=== PATIENT | male | born 1985 | race Caucasian/White ===

== ENCOUNTER 2016-12-10 03:40 | Emergency (ER) | payer OTHER ==
--- NOTE | 2016-12-10 04:00 | ER Document Report ---
ED Psych Disorder / Suicide - General Mode of Arrival: Ambulatory Information source: Patient TRAVEL OUTSIDE OF THE [place] IN LAST 30 DAYS: No - HPI Patient complains to provider of: Suicidal attempt Onset: This evening Similar symptoms previously: No Recently seen / treated by doctor: No <LACI GLEZ - Last Filed: 12/10/16 05:20> <CHRISTALFLORIAN ANN - Last Filed: 12/10/16 06:37> - General Chief Complaint: Suicidal Ideation Stated Complaint: SUICIDAL IDEATION Time Seen by Provider: 12/10/16 03:59 Notes: Patient is a 31-year-old male presented emergency department after suicidal attempt. Patient states that he threw a knife to his throat this evening. Patient states the first time and has never had before. Patient denies being upset by anything recently and does not know how it happened. Patient states it was "spur of the moment." Patient states that he did this after he called to check in with his family and stepdad. Patient states that his doctor was telling him that a "college degree is not enough." Patient lives alone and denies have any guns in his house. 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 Patient does not take any medications. Patient is never seen a counselor. Patient smokes cigarettes and drinks alcohol. (LACI GLEZ) - Related Data Allergies/Adverse Reactions: sulfamethoxazole [From Septra] Allergy (Verified 12/10/16 03:51) trimethoprim [From Septra] Allergy (Verified 12/10/16 03:51) Past Medical History - General Information source: Patient - Social History Smoking Status: Current Every Day Smoker Frequency of alcohol use: Social Occupation: [employer] Lives with: Alone Family History: None Patient has suicidal ideation: No Patient has homicidal ideation: No Surgical Hx: Negative <LACI GLEZ - Last Filed: 12/10/16 05:20> Review of Systems - Review of Systems Constitutional: No symptoms reported EENT: No symptoms reported Cardiovascular: No symptoms reported Respiratory: No symptoms reported Gastrointestinal: No symptoms reported Genitourinary: No symptoms reported Male Genitourinary: No symptoms reported Musculoskeletal: No symptoms reported Skin: No symptoms reported Hematologic/Lymphatic: No symptoms reported Neurological/Psychological: See HPI, Suicidal ideation -: Yes All other systems reviewed and negative <LACI GLEZ - Last Filed: 12/10/16 05:20> Physical Exam - Vital signs Interpretation: Hypertensive <LACI GLEZ - Last Filed: 12/10/16 05:20> <FLORIAN SIEGEL - Last Filed: 12/10/16 06:37> - Vital signs Vitals: Temp Pulse Resp BP Pulse Ox 98.2 F 85 16 146/78 H 96 12/10/16 03:43 12/10/16 03:43 12/10/16 03:43 12/10/16 03:43 12/10/16 03:43 - Notes Notes: GENERAL: Alert, interacts well, suicidal. Mild distress. HEAD: Normocephalic, atraumatic. EYES: Appear normal. Pupils equal, round, and reactive to light. ENT: Moist mucus membranes, tongue midline. NECK: Full range of motion. Supple. Trachea midline. LUNGS: Clear to auscultation bilaterally, no wheezes, rales, or rhonchi. No respiratory distress. HEART: Regular rate and rhythm. No murmurs, gallops, or rubs. ABDOMEN: Soft, non-tender. Non-distended. Normal bowel sounds. EXTREMITIES: Moves all 4 extremities spontaneously. Normal strength. No edema. NEUROLOGICAL: Alert and oriented x3. Normal speech. No focal neurological deficits. GSC 15. PSYCH: Labile. SKIN: Warm, dry, normal turgor. No rashes or lesions noted. (NEWTONLACI) Course - Laboratory Result Diagrams: 12/10/16 04:15 12/10/16 04:15 <LACI GLEZ - Last Filed: 12/10/16 05:20> - Laboratory Result Diagrams: 12/10/16 04:15 12/10/16 04:15 <FLORIAN SIEGEL - Last Filed: 12/10/16 06:37> - Re-evaluation Re-evalutation: 12/10/16 06:36 Patient is a 31-year-old male who presents after feeling like killing himself and impulsively pulling a knife to his throat. Patient denies any history of this. Patient denies any previous suicide attempts or mental health disorder. Patient is labile in room. Due to this, presenting complaint, and impulsivity, recommended the patient stay on involuntary commitment paperwork. He is otherwise medically stable. (FLORIAN SIEGEL) - Vital Signs Vital signs: Temp Pulse Resp BP Pulse Ox 98.2 F 85 16 146/78 H 96 12/10/16 03:43 12/10/16 03:43 12/10/16 03:43 12/10/16 03:43 12/10/16 03:43 - Laboratory Laboratory results interpreted by me: 12/10/16 12/10/16 04:15 05:37 Sodium 146.5 H Chloride 112 H Carbon Dioxide 18 L Urine Ketones TRACE H Urine Urobilinogen 2.0 H Salicylates < 1.0 L Acetaminophen < 10 L Discharge <LACI GLEZ - Last Filed: 12/10/16 05:20> <FLORIAN SIEGEL - Last Filed: 12/10/16 06:37> - Discharge Clinical Impression: Suicidal ideation Condition: Stable Disposition: PSYCH HOSP/UNIT Scribe Attestation: 12/10/16 06:37 I personally performed the services described in the documentation, reviewed and edited the documentation which was dictated to the scribe in my presence, and it accurately records my words and actions. (FLORIAN SIEGEL) Scribe Documentation - Scribe Written by Robbi:: Robbi Martinez, 12/10/2016 525 acting as scribe for :: Christal <LACI GLEZ - Last Filed: 12/10/16 05:20>
[2016-12-10 04:45] LABS: ABSOLUTE BASOPHILS # (AUTO) 0.1 10^3/uL (0.0-0.2); ABSOLUTE EOSINOPHILS # (AUTO) 0.2 10^3/uL (0.0-0.6); ABSOLUTE LYMPHOCYTES (AUTO) 2.9 10^3/uL (0.5-4.7); ABSOLUTE MONOCYTES (AUTO) 0.6 10^3/uL (0.1-1.4); ABSOLUTE NEUT (AUTO) 2.9 10^3/uL (1.7-8.2); BASOPHILS % (AUTO) 1.2 % (0-2); EOSINOPHILS % (AUTO) 3.4 % (0-6); HEMATOCRIT 45.2 % (37.9-51.0); HEMOGLOBIN 15.4 g/dL (13.5-17.0); LYMPHOCYTES % (AUTO) 42.7 % (13-45); MEAN CORPUSCULAR HEMOGLOBIN 31.4 pg (27.0-33.4); MEAN CORPUSCULAR HGB CONC 34.2 g/dL (32.0-36.0); MEAN CORPUSCULAR VOLUME 92 fl (80-97); MONOCYTES % (AUTO) 9.1 % (3-13); RED BLOOD COUNT 4.91 10^6/uL (4.35-5.55); RED CELL DISTRIBUTION WIDTH 13.2 % (11.5-14.0); SEGMENTED NEUTROPHILS % (AUTO) 43.6 % (42-78); WHITE BLOOD COUNT 6.7 10^3/uL (4.0-10.5)
[2016-12-10 05:08] LABS: ALANINE AMINOTRANSFERASE 38 U/L (21-72); ALBUMIN 4.4 g/dL (3.5-5.0); ALCOHOL 131 mg/dL (NONE DETECTED); ALKALINE PHOSPHATASE 88 U/L (38-126); ANION GAP 17 (5-19); ASPARTATE AMINO TRANSFERASE 28 U/L (17-59); BILIRUBIN,DIRECT 0.4 mg/dL (0.0-0.4); BILIRUBIN,TOTAL 0.4 mg/dL (0.2-1.3); BLOOD UREA NITROGEN 16 mg/dL (7-20); CALCIUM 9.6 mg/dL (8.4-10.2); CARBON DIOXIDE 18 mmol/L (22-30); CHLORIDE 112 mmol/L (98-107); CREATININE RESULT 0.89 mg/dL (0.52-1.25); GLUCOSE 93 mg/dL (75-110); POTASSIUM 4.1 mmol/L (3.6-5.0); SODIUM 146.5 mmol/L (137-145); TOTAL PROTEIN 7.7 g/dL (6.3-8.2)
[2016-12-10 06:05] LABS: APPEARANCE,URINE CLEAR; BILIRUBIN,URINE NEGATIVE (NEGATIVE); GLUCOSE, URINE NEGATIVE (NEGATIVE); KETONES,URINE TRACE mg/dL (NEGATIVE); LEUKOCYTE ESTERASE,URINE NEGATIVE (NEGATIVE); NITRITE,URINE NEGATIVE (NEGATIVE); PROTEIN,URINE NEGATIVE (NEGATIVE); URINE SPECIFIC GRAVITY 1.018
[2016-12-10 06:19] LABS: URINE BARBITURATES SCREEN NEGATIVE; URINE METHADONE SCREEN NEGATIVE; URINE OPIATES LOW NEGATIVE; URINE PHENCYCLIDINE SCREEN NEGATIVE
--- NOTE | 2016-12-10 08:13 | EKG REPORT ---
SEVERITY:- NORMAL ECG - SINUS RHYTHM : Confirmed by: Glynn Howard MD 10-Dec-2016 08:12:34
--- NOTE | 2016-12-10 11:12 | ER Document Report ---
Doctor's Note Notes: 12/10/16 11:11 Rounds: Chart reviewed and patient interviewed. Patient being evaluated for having expressed suicidal thoughts yesterday. He had been drinking alcohol and his blood level was 131 here. All other lab studies essentially normal. Currently, vital signs are normal. Patient denies feeling suicidal at this time. Patient appears to be medically stable for transfer or discharge. Jose Grayson MD
[2016-12-10 15:32] VITALS: BP 158/93
== END 2016-12-10 16:00 | disposition home or self-care (01) ==
LOC: ER 03:40
DX: F32.9 Major depressive disorder, single episode, unspecified (principal); R45.851 Suicidal ideations; F17.210 Nicotine dependence, cigarettes, uncomplicated; Z88.1 Allergy status to other antibiotic agents
CPT/HCPCS: 36415; 80053; 80307; 81001; 85025; 93005; 93010; 99285

== ENCOUNTER 2017-01-14 00:31 | Emergency (ER) | payer OTHER ==
[2017-01-14] MEDS ORDERED: LIDOCAINE 1% INJ-PF (10 MG/ML) 30 ML SDV INJ ONE (04:29)
--- NOTE | 2017-01-14 04:35 | ER Document Report ---
ED Skin Rash/Insect Bite/Abscs - General Chief Complaint: Abscess Stated Complaint: KNOT UNDER LEFT NIPPLE Time Seen by Provider: 01/14/17 04:18 Notes: She patient is a 31-year-old male who comes emergency department for chief complaint of a painful, red, draining area under his left breast area on his chest wall. He states it started out as a "pimple" 2 days ago but has worsened and become harder. He states he has had abscesses before in the past. He denies history of diabetes. He denies fever or chills, denies any other symptoms. TRAVEL OUTSIDE OF THE [place] IN LAST 30 DAYS: No - Related Data Allergies/Adverse Reactions: sulfamethoxazole [From ] Allergy (Verified 12/10/16 03:51) trimethoprim [From ] Allergy (Verified 12/10/16 03:51) Past Medical History - General Information source: Patient - Social History Smoking Status: Never Smoker Frequency of alcohol use: None Drug Abuse: None Lives with: Family Family History: None Patient has suicidal ideation: No Patient has homicidal ideation: No - Medical History Medical History: Negative Renal/ Medical History: Denies: Hx Peritoneal Dialysis Surgical Hx: Negative - Immunizations Hx Diphtheria, Pertussis, Tetanus Vaccination: Yes Review of Systems - Review of Systems Constitutional: No symptoms reported EENT: No symptoms reported Cardiovascular: No symptoms reported Respiratory: No symptoms reported Gastrointestinal: No symptoms reported Genitourinary: No symptoms reported Male Genitourinary: No symptoms reported Musculoskeletal: No symptoms reported Skin: See HPI Hematologic/Lymphatic: No symptoms reported Neurological/Psychological: No symptoms reported Physical Exam - Vital signs Vitals: Temp Pulse Resp BP Pulse Ox 98.7 F 60 18 158/92 H 98 01/14/17 01:27 01/14/17 01:27 01/14/17 01:27 01/14/17 01:27 01/14/17 01:27 Interpretation: Normal - General General appearance: Appears well, Alert In distress: None - HEENT Head: Normocephalic, Atraumatic Eyes: Normal Pupils: PERRL - Respiratory Respiratory status: No respiratory distress Chest status: Nontender Breath sounds: Normal Chest palpation: Normal - Cardiovascular Rhythm: Regular Heart sounds: Normal auscultation Murmur: No - Abdominal Inspection: Normal Distension: No distension Bowel sounds: Normal Tenderness: Nontender. No: Tender, Guarding Organomegaly: No organomegaly - Back Back: Normal, Nontender - Extremities General upper extremity: Normal inspection, Nontender, Normal color, Normal ROM , Normal temperature General lower extremity: Normal inspection, Nontender, Normal color, Normal ROM , Normal temperature, Normal weight bearing. No: Lencho's sign - Neurological Neuro grossly intact: Yes Cognition: Normal Orientation: AAOx4 Lucas Coma Scale Eye Opening: Spontaneous Live Coma Scale Verbal: Oriented Lucas Coma Scale Motor: Obeys Commands Lucas Coma Scale Total: 15 Speech: Normal Motor strength normal: LUE, RUE, LLE, RLE Sensory: Normal - Psychological Associated symptoms: Normal affect, Normal mood - Skin Skin Temperature: Warm Skin Moisture: Dry Skin Color: Normal Skin irregularity: Abscess - There is a mildly erythematous indurated area below the left breast on the chest wall with a fluctuant head, no significant surrounding erythema, no other abnormalities of the skin noted Course - Vital Signs Vital signs: Temp Pulse Resp BP Pulse Ox 98.4 F 58 L 18 136/88 H 97 01/14/17 06:15 01/14/17 06:15 01/14/17 06:15 01/14/17 06:15 01/14/17 06:15 Procedures - Incision and Drainage Left breast/chest wall Type: Single Anesthetic type: 1% Lidocaine mL's of anesthetic: 4 I&D procedure: Shurclens applied - Surgical cleanser, Sterile dressing applied Incision Method: Incision made by scalpel Notes: Area of the left chest wall clean, incision made, purulent drainage expressed, able to see capsule of sebaceous gland, consistent with infected sebaceous gland. Explored, dressed. Discharge - Discharge Clinical Impression: Abscess Condition: Stable Disposition: HOME, SELF-CARE Additional Instructions: Examination consistent with an infected sebaceous cyst. This has been drained, keep absorbent dressing over the area, clean with soap and water. Follow-up with primary care. You may need a referral to dermatology to have the cyst removed if it keeps on getting infected. Return to the emergency department for any concerning or worsening symptoms including spreading redness, swelling, fever, etc.
[2017-01-14 06:36] VITALS: BP 136/88
== END 2017-01-14 06:15 | disposition home or self-care (01) ==
LOC: ER 00:31
PROC: 0H95XZZ Drainage of Chest Skin, External Approach (ICD-10-PCS; principal; 2017-01-14)
DX: L02.213 Cutaneous abscess of chest wall (principal); Z88.1 Allergy status to other antibiotic agents
CPT/HCPCS: 10060; 99283; A6266